=== PATIENT | male | born 1940 | race Caucasian/White ===

== ENCOUNTER 2016-06-07 14:49 | Outpatient (CLI) | payer OTHER ==
--- NOTE | 2016-06-07 16:41 | DIAGNOSTIC IMAGING REPORT ---
PROCEDURE: MR BRAIN W/WO CONTRAST INDICATION: SEVERE NEW ONSET HEADACHES TECHNIQUE: Multiplanar multisequence MRI imaging of the brain without contrast. Post administration of 15 ml ProHance gadolinium based IV contrast, three plane T1 fat sat sequences were obtained. COMPARISON: None. FINDINGS: The midline structures are normally formed. The ventricular system is normal in size. Basal cisterns are patent. Flow voids in the major intracranial vessels are normal. No vascular malformations seen post contrast. Scattered areas of increased signal are seen in the periventricular white matter consistent with small-vessel ischemic disease. No restricted diffusion to suggest acute ischemia. No evidence of acute or chronic intraparenchymal or extra-axial hemorrhage. No mass, mass effect, or midline shift. No suspicious enhancement. There is a mucoperiosteal thickening throughout both maxillary sinuses. There is a mucous retention cyst in the right maxillary sinus. IMPRESSION: 1. 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 Otherwise negative MRI of the brain. 2. No abnormal enhancement. 3. Bilateral maxillary sinus disease.
== END 2016-06-07 23:00 | disposition home or self-care (01) ==
LOC: MRI SRH 14:49
DX: R51 Headache (principal); J32.0 Chronic maxillary sinusitis